=== PATIENT | female | born 1960 | race Caucasian/White ===

== ENCOUNTER → 2016-07-20 | Outpatient (CLI) | payer OTHER ==
--- NOTE | 2016-07-23 08:44 | MM ---
Reason for exam: screening (asymptomatic). Last mammogram was performed 5 years and 11 months ago. History: Patient is postmenopausal. Family history of breast cancer in sister at age 53. Retro-pectoral saline implants in both breasts, 2002. Implant Removal of both breasts, 1996. Implants in both breasts, 1976. Physical Findings: A clinical breast exam by your physician is recommended on an annual basis and results should be correlated with mammographic findings. MG 3D Screen Mammo Imp/Cad Bilateral CC and MLO view(s) were taken. Prior study comparison: August 25, 2010, CAD bilateral diagnostic mammogram. The breast tissue is heterogeneously dense. This may lower the sensitivity of mammography. There is chronic nodularity in the left breast. There is no discrete abnormality. Bilateral subpectoral saline implants now present. ASSESSMENT: Benign, BI-RAD 2 RECOMMENDATION: Routine screening mammogram of both breasts in 1 year.
== END | disposition home or self-care (01) ==
LOC: RADMAMWWP 11:04
PROVIDERS: ATTEND Family Medicine
DX: Z12.31 Encounter for screening mammogram for malignant neoplasm of breast (principal)
CPT/HCPCS: 77063; G0202

== ENCOUNTER → 2016-08-13 | Outpatient (CLI) | payer OTHER ==
--- NOTE | 2016-08-13 17:10 | MR ---
EXAMINATION TYPE: MR cervical spine wo con DATE OF EXAM: 08/13/2016 4:15 PM COMPARISON: NONE HISTORY: 55-year-old female with neck pain with Cracking x9 years TECHNIQUE: Multiplanar, multisequence images of the cervical spine were acquired. FINDINGS: No craniocervical junction abnormality, predental space widening, or prevertebral soft tissue swellin g. There is normal alignment of the cervical spine. Mild heterogeneity of marrow signal without bone marrow replacement. The intervertebral discs are degenerated and desiccated with the greatest degree of moderate narrowin g at C5-C6. Multilevel disc osteophyte complexes are present. Additional facet and uncovertebral joint degenerative change as well as ligamentum flavum thickening. At C2-C3, there is facet degenerative change without significant spinal canal or foraminal stenosis. At C3-C4, there is facet degenerative change without significant spinal canal or neuroforaminal steno sis. At C4-C5, there is facet and uncovertebral joint degenerative change. Changes result in mild to moder ate right neuroforaminal stenosis without spinal canal stenosis. At C5-C6, there is disc osteophyte complex with contiguous uncovertebral joint degenerative change. T here is also facet degenerative change and ligamentum flavum thickening. This results in mild bilater al neuroforaminal narrowing and mild impression on to both the dorsal and ventral thecal sac but no s ignificant spinal canal stenosis. At C6-C7, there is disc osteophyte complex with uncovertebral joint and facet degenerative change. Ad ditional ligamentum flavum thickening. This contributes to mild overall spinal canal stenosis with a dorsal abutment of the cord but no significant cord flattening. There is also mild bilateral neurofor aminal narrowing. At C7-T1, posterior disc bulge with facet degenerative change. No significant spinal canal or neurofo raminal stenosis. There is normal course, caliber, and signal intensity of the cervical cord allowing for linear artifa cts projecting across the lower cord. No prevertebral or paravertebral soft tissue abnormality seen. IMPRESSION: 1. Mild to moderate multilevel disc/endplate degenerative change. Additional ligamentum flavum thicke marcello with scattered facet and uncovertebral joint arthropathy greatest in the mid to lower cervical s pine. 2. Changes result in mild spinal canal stenosis at C6-C7. Thickened ligamentum flavum abuts the dorsa l cord but there is no cord flattening or cord compression. 3. Variable mild neural foraminal stenoses as outlined above. There is no canal or foraminal compromi se.
== END | disposition home or self-care (01) ==
LOC: RADMRIMAIN 15:40
PROVIDERS: ATTEND Physician Assistant Medical
DX: M48.02 Spinal stenosis, cervical region (principal); M99.71 Connective tissue and disc stenosis of intervertebral foramina of cervical region; M47.812 Spondylosis without myelopathy or radiculopathy, cervical region; M46.02 Spinal enthesopathy, cervical region
CPT/HCPCS: 72141

== ENCOUNTER 2019-03-15 12:47 | Emergency (ER) | payer OTHER ==
[2019-03-15 13:15] VITALS: BP 121/80; RESP 20; TEMP 98
[2019-03-15] MEDS ORDERED: IPRATROPIUM-ALBUTEROL 3 ML NEB INHALATION STA (13:33)
--- NOTE | 2019-03-15 13:52 | XR ---
EXAMINATION TYPE: XR chest 2V DATE OF EXAM: 03/15/2019 HISTORY: cough. REFERENCE: NONE. FINDINGS: Increased density in the lower lobes bilaterally is believed to BE secondary to overlying s oft tissue. Lungs appear clear. Pleural space are clear. The heart is not enlarged. IMPRESSION: NO ACTIVE INTRATHORACIC DISEASE.
--- NOTE | 2019-03-15 13:57 | ED ---
General Adult HPI - General Chief complaint: Shortness of Breath Stated complaint: Wheezing; coughing Time Seen by Provider: 03/15/19 13:18 Source: patient, RN notes reviewed Mode of arrival: ambulatory Limitations: no limitations - History of Present Illness Initial comments: 4-year-old female presents emergency from she bring cough congestion. Patient states she's been sick for several weeks from last week she's had increased shortness breath. She states that she notices been using, she has a productive cough. She is a daily smoker. Patient denies any. Chills no chest pain, headache, dizziness, syncopal episodes. Patient has not taken many [id number] cough and cold medications. - Related Data Home Medications Medication Instructions Recorded Confirmed Carisoprodol [Soma] 350 mg PO QID 09/17/15 09/17/15 Meloxicam [Mobic] 15 mg PO BID 09/17/15 09/17/15 Multivitamins, Thera [Multivitamin] 1 tab PO DAILY 09/17/15 09/17/15 oxyCODONE HCL [oxyCODONE HCL (IR)] 15 mg PO Q6HR PRN 09/17/15 09/17/15 Previous Rx's Medication Instructions Recorded Clotrimazole [Lotrimin AF] 24 gm TP DAILY #24 cream..g. 09/17/15 Famotidine [Pepcid] 20 mg PO BID #10 tablet 09/17/15 predniSONE 20 mg PO BID #10 tab 09/17/15 Albuterol Sulfate [Proair Hfa] 1 - 2 puff INHALATION Q4HR PRN #1 03/15/19 inhaler Azithromycin [Zithromax Z-pack] 0 mg PO DIRECTED #1 pack 03/15/19 predniSONE 50 mg PO DAILY #5 tab 03/15/19 Allergies Allergy/AdvReac Type Severity Reaction Status Date / Time codeine AdvReac Nausea & Verified 03/15/19 13:15 Vomiting Review of Systems ROS Statement: Those systems with pertinent positive or pertinent negative responses have been documented in the HPI. ROS Other: All systems not noted in ROS Statement are negative. Past Medical History Past Medical History: Osteoarthritis (OA), Thyroid Disorder Additional Past Medical History / Comment(s): chronic pain History of Any Multi-Drug Resistant Organisms: None Reported Past Surgical History: Back Surgery, Hysterectomy Past Psychological History: No Psychological Hx Reported Smoking Status: Current every day smoker Past Alcohol Use History: None Reported Past Drug Use History: None Reported General Exam Limitations: no limitations General appearance: alert, in no apparent distress Head exam: Present: atraumatic, normocephalic, normal inspection Eye exam: Present: normal appearance, PERRL, EOMI. Absent: scleral icterus, conjunctival injection, periorbital swelling ENT exam: Present: normal exam, normal oropharynx, mucous membranes moist Neck exam: Present: normal inspection, full ROM. Absent: tenderness, meningismus, lymphadenopathy Respiratory exam: Present: wheezes. Absent: normal lung sounds bilaterally, respiratory distress, rales, rhonchi, stridor Cardiovascular Exam: Present: regular rate, normal rhythm, normal heart sounds. Absent: systolic murmur, diastolic murmur, rubs, gallop, clicks Course Vital Signs 03/15/19 03/15/19 13:13 14:03 Temperature 98.0 F Pulse Rate 87 94 Respiratory 20 Rate Blood Pressure 121/80 O2 Sat by Pulse 93 L Oximetry Medical Decision Making - Medical Decision Making X-ray does not reveal any acute abnormality. Patient is improved after DuoNeb treatment. Patient is a daily smokerI counseled the patient for smoking cessation for greater than 3 minutes. Patient we discharged on antibiotics, steroids, Proventil inhaler. Disposition Clinical Impression: Acute bronchitis Disposition: HOME SELF-CARE Condition: Stable Instructions (If sedation given, give patient instructions): Acute Bronchitis (ED), Bronchospasm (ED) Additional Instructions: Please return to the Emergency Department if symptoms worsen or any other co ncerns. Prescriptions: predniSONE 50 mg PO DAILY #5 tab Albuterol Sulfate [Proair Hfa] 1 - 2 puff INHALATION Q4HR PRN #1 inhaler PRN Reason: difficulty in breathing Azithromycin [Zithromax Z-pack] 0 mg PO DIRECTED #1 pack Is patient prescribed a controlled substance at d/c from ED?: No Referrals: Vandana Berg III, MD [Primary Care Provider] - 1-2 days Time of Disposition: 14:09
[2019-03-15 14:19] VITALS: PULSE 96
== END 2019-03-15 14:10 | disposition home or self-care (01) ==
LOC: EC 12:47
DX: J20.9 Acute bronchitis, unspecified (principal); M19.90 Unspecified osteoarthritis, unspecified site; G89.29 Other chronic pain; E07.9 Disorder of thyroid, unspecified; F17.200 Nicotine dependence, unspecified, uncomplicated; Z79.1 Long term (current) use of non-steroidal anti-inflammatories (NSAID); Z79.899 Other long term (current) drug therapy; Z88.5 Allergy status to narcotic agent; Z71.6 Tobacco abuse counseling
CPT/HCPCS: 71046; 94640; 99285

== ENCOUNTER → 2020-04-15 | Outpatient (CLI) | payer OTHER ==
--- NOTE | 2020-04-19 09:14 | MM ---
Reason for exam: screening (asymptomatic). Last mammogram was performed 3 years and 9 months ago. History: Patient is postmenopausal. Family history of breast cancer in sister at age 53. Retro-pectoral saline implants in both breasts, 2002. Implant Removal of both breasts, 1996. Implants in both breasts, 1976. Took hormonal contraceptives for 2 years. Took other hormone for 1 year. Physical Findings: A clinical breast exam by your physician is recommended on an annual basis and results should be correlated with mammographic findings. MG 3D Screen Mammo Imp/Cad Bilateral CC and MLO view(s) were taken. Prior study comparison: July 20, 2016, bilateral MG 3d screen mammo imp/cad. There are scattered fibroglandular densities. There is chronic nodularity in the left breast. Bilateral retropectoral saline implants. No significant changes when compared with prior studies. ASSESSMENT: Benign, BI-RAD 2 RECOMMENDATION: Routine screening mammogram of both breasts in 1 year.
== END | disposition home or self-care (01) ==
LOC: RADMAMWWP 13:43
PROVIDERS: ATTEND Family Medicine
DX: Z12.31 Encounter for screening mammogram for malignant neoplasm of breast (principal)
CPT/HCPCS: 77063; 77067

== ENCOUNTER → 2020-05-06 | Outpatient (CLI) | payer OTHER ==
[2020-05-06 12:38] LABS: Basophils % (A) 0 %; Eosinophils # (A) 0.1 k/uL (0-0.7); Eosinophils % (A) 2 %; HCT 44.8 % (34.0-46.0); HGB 14.9 gm/dL (11.4-16.0); Lymphocytes # (A) 2.8 k/uL (1.0-4.8); Lymphocytes % (A) 32 %; MCH 30.8 pg (25.0-35.0); MCHC 33.2 g/dL (31.0-37.0); MCV 92.6 fL (80.0-100.0); Mean Platelet Volume 7.1; Monocytes # (A) 0.5 k/uL (0-1.0); Monocytes % (A) 5 %; Neutrophils # (A) 5.3 k/uL (1.3-7.7); Neutrophils % (A) 60 %; Platelet Count 292 k/uL (150-450); RBC 4.84 m/uL (3.80-5.40); RDW 12.2 % (11.5-15.5); WBC 8.9 k/uL (3.8-10.6)
[2020-05-06 12:45] LABS: ALT 18 U/L (4-34); AST 21 U/L (14-36); African American GFR (CKD) >90 (>60 ml/min/1.73 sqM); Albumin 4.5 g/dL (3.5-5.0); Alkaline Phosphatase 73 U/L (38-126); Amylase 46 U/L (30-110); Anion Gap 10 mmol/L; Blood Urea Nitrogen 21 mg/dL (7-17); Calcium 9.7 mg/dL (8.4-10.2); Carbon Dioxide 29 mmol/L (22-30); Chloride 102 mmol/L (98-107); Glucose 111 mg/dL (74-99); Lipase 53 U/L (23-300); Non-African American GFR(CKD) 83 (>60 ml/min/1.73 sqM); Potassium 3.9 mmol/L (3.5-5.1); Sodium 141 mmol/L (137-145); Total Bilirubin 0.5 mg/dL (0.2-1.3); Total Protein 7.7 g/dL (6.3-8.2)
[2020-05-06 15:16] LABS: T4, Free (Free Thyroxine) 1.07 ng/dL (0.78-2.19)
--- NOTE | 2020-05-06 17:47 | CT ---
EXAMINATION TYPE: CT abdomen pelvis w con DATE OF EXAM: 05/06/2020 COMPARISON: None available. HISTORY: Mid to right sided pain with nausea. CT DLP: 667.1 mGycm Automated exposure control for dose reduction was used. TECHNIQUE: Helical acquisition of images was performed from the lung bases through the pelvis. CONTRAST: Performed with Oral Contrast and with IV Contrast, patient injected with 100 mL of Isovue 300. FINDINGS: LUNG BASES: No significant abnormality is appreciated. LIVER/GB: No significant abnormality is appreciated. PANCREAS: No significant abnormality is seen. SPLEEN: No significant abnormality is seen. ADRENALS: No significant abnormality is seen. KIDNEYS: No significant abnormality is seen. 1.7 cm benign-appearing right renal cyst. FREE AIR: No free air is visualized. RETROPERITONEAL ADENOPATHY: None visualized REPRODUCTIVE ORGANS: No significant abnormality is seen URINARY BLADDER: No acute abnormality is seen. 3 mm nonobstructing left renal calculus in the lower pole. Few bilateral benign-appearing renal cysts, measuring up to 1.4 cm. PELVIC ADENOPATHY: None visualized. OSSEOUS STRUCTURES: No acute abnormality is seen. L4-L5 fusion with intervening interbody device see n. Stable associated focal lordosis. BOWEL: Moderate fat stranding within the mid to lower right mesentery. Associated moderate to large amount of stool within the ascending and transverse colon. No overt bowel obstruction, free air or si gnificant free fluid. Mild tortuosity of the transverse colon is seen. No acute appendicitis. OTHER: None. IMPRESSION: MODERATE INFLAMMATORY CHANGES WITHIN THE MID TO LOWER RIGHT MESENTERY WITH ASSOCIATED LARGE STOOL BUR DEN INVOLVING THE RIGHT AND TRANSVERSE COLON. FINDINGS MAY RELATE TO ACUTE MESENTERITIS WITH COLONIC ILEUS. No overt bowel obstruction, free air or significant free fluid. Recommend clinical and imaging follow-up to resolution and exclude any underlying etiology. Stable L4-L5 fusion with mild lordosis
[2020-05-07 06:19] LABS: Urine Alcohol Negative (Negative); Urine Barbiturate Negative (Negative); Urine Cocaine Negative (Negative); Urine Methadone Negative (Negative); Urine Opiates Positive (Negative); Urine Phencyclidine Negative (Negative)
== END | disposition home or self-care (01) ==
LOC: RADCTMAIN 12:03
PROVIDERS: ATTEND Family Medicine
DX: K66.8 Other specified disorders of peritoneum (principal); R10.817 Generalized abdominal tenderness; Z51.81 Encounter for therapeutic drug level monitoring; Z79.899 Other long term (current) drug therapy
CPT/HCPCS: 84439; 80053; 84443; 82150; 83690; 85025; 80306; 74177; 36415; Q9967

== ENCOUNTER → 2023-01-11 | Outpatient (CLI) | payer MEDICAID ==
--- NOTE | 2023-01-11 11:31 | US ---
EXAMINATION TYPE: US carotid duplex BILAT DATE OF EXAM: 01/11/2023 COMPARISON: NONE CLINICAL INDICATION: Female, 62 years old with history of I65.29 OCCLUSION AND STENOSIS Z12.2 LUNG C ANCER S; stenosis TECHNIQUE: Carotid duplex ultrasound examination. Indirect Doppler criteria was utilized. FINDINGS: EXAM MEASUREMENTS: RIGHT: Peak Systolic Velocity (PSV) cm/sec ----- Right CCA: 85.2 ----- Right ICA: 104 ----- Right ECA: 79.3 ICA/CCA ratio: 1.2 RIGHT: End Diastole cm/sec ----- Right CCA: 29.9 ----- Right ICA: 44.5 ----- Right ECA: 15.4 LEFT: Peak Systolic Velocity (PSV) cm/sec ----- Left CCA: 77.9 ----- Left ICA: 88.1 ----- Left ECA: 60.5 ICA/CCA ratio: 1.1 LEFT: End Diastole cm/sec ----- Left CCA: 24.1 ----- Left ICA: 38.7 ----- Left ECA: 11 VERTEBRALS (direction of flow): Right Vertebral: Antegrade Left Vertebral: Antegrade Rhythm: Normal MANAGER APPLICATION NOTES: No significant stenosis seen IMPRESSION: No evidence for hemodynamically significant stenosis. Criteria for Assigning % of Stenosis / Diameter reduction (Estimation based on the indirect measurements of the internal carotid artery velocities (ICA PSV). 1. Normal (no stenosis)=ICA PSV < 125 cm/s: ratio < 2.0: ICA EDV<40 cm/s. 2. Less than 50% stenosis=ICA PSV < 125 cm/s: ratio < 2.0: ICA EDV<40 cm/s. 3. 50 to 69% stenosis=ICA PSV of 125 to 230 cm/s: ration 2.0 ? 4.0: ICA EDV 40-100 cm/s. 4. Greater than 70% stenosis to near occlusion= ICA PSV > 230 cm/s: ratio > 4.0: ICA EDV > 100 cm/s. 5. Near occlusion= ICA PSV velocities may be low or undetectable: variable ratio and ICA EDV. 6. Total occlusion=unable to detect flow.
--- NOTE | 2023-01-11 13:17 | CTL ---
EXAMINATION TYPE: CT Low Dose Lung DATE OF EXAM ORDERED: 01/11/2023 HISTORY: 62-year-old female I65.29 OCCLUSION AND STENOSIS Z12.2 LUNG CANCER S. Lung cancer screening. Former smoker with 25 pack-year history. CT DLP: 80.[address] CTDI: 2.3 mGy Automated exposure control for dose reduction was used. SCREENING VISIT: Baseline COMPARISON: None TECHNIQUE: Low dose computed tomography scan was performed through the chest with coronal and sagitta l reconstructions. CT DIAGNOSTIC QUALITY: Satisfactory FINDINGS: Bilateral breast implants. Heart normal size without pericardial effusion. Aorta normal caliber with conventional arch vessel branching anatomy. No thoracic lymphadenopathy by CT size criteria. Mild emphysematous change. Minimal biapical pleural parenchymal scarring. Some mild strandy scarring or atelectasis in the lower lungs. No consolidation or pleural effusion. No suspicious pulmonary nodules or masses. Visualized upper abdomen shows no gross abnormality. Bones: No osseous destructive process. IMPRESSION: 1. Lung RADS 1, negative. No suspicious pulmonary nodules. 2. COPD with very mild emphysema. CT LUNG RAD AND CT CHEST RECOMMENDATION: Lung-Rad 1 Negative: Continue annual screening with LDCT in 12 months. S Modifier (other clinically significant findings): None
== END | disposition home or self-care (01) ==
LOC: RADUSWWP 10:31
PROVIDERS: ATTEND Internal Medicine
DX: Z12.2 Encounter for screening for malignant neoplasm of respiratory organs (principal); I65.23 Occlusion and stenosis of bilateral carotid arteries; Z87.891 Personal history of nicotine dependence
CPT/HCPCS: 71271; 93880